=== PATIENT | female | born 1945 ===

== ENCOUNTER → 2023-12-07 | Outpatient (CLI) | payer SELFPAY ==
[2023-12-07 17:03] LABS: BILIRUBIN,URINE NEGATIVE (NEGATIVE); LEUKOCYTE ESTERASE ,URINE TRACE (NEGATIVE); NITRATE,URINE NEGATIVE (NEGATIVE); PH,URINE 6.5 (4.5-8.0); UROBILINOGEN,URINE 0.2 E.U./dL (0.2)
[2023-12-07 17:13] LABS: APPEARANCE,URINE CLEAR; UA COLOR YELLOW
== END | disposition home or self-care (01) ==
LOC: NPLAB 16:25
PROVIDERS: ATTEND Internal Medicine
DX: N39.0 Urinary tract infection, site not specified (principal)
CPT/HCPCS: 81001; 87086